=== PATIENT | female | born 1985 | race Caucasian/White ===

== ENCOUNTER 2024-08-14 18:26 | Emergency (ER) | payer BC ==
[~2024-08-14] VITALS: Ht 165.1 cm; Wt 56.7 kg
[2024-08-14 18:28] VITALS: O2SAT 98
== END 2024-08-16 08:50 | disposition left against medical advice (07) ==
LOC: ER 18:27
DX: F10.129 Alcohol abuse with intoxication, unspecified (principal); R11.2 Nausea with vomiting, unspecified; Y90.0 Blood alcohol level of less than 20 mg/100 ml
CPT/HCPCS: A4606; A4663